=== PATIENT | female | born 1980 | race Caucasian/White ===

== ENCOUNTER 2024-10-14 08:24 | Day surgery (SDC) | payer OTHER ==
[2024-10-13 10:26] VITALS: BMI 23.0
[2024-10-14] MEDS ORDERED: Bupivacaine PF 0.5% 30 ML VIAL ONE (09:01)
[2024-10-14] MEDS ORDERED: CEFAZOLIN 2 GM VIAL ONE (09:01)
[2024-10-14] MEDS ORDERED: Dexamethasone 4 mg/ml Vial ONE (10:16)
[2024-10-14] MEDS ORDERED: Lidocaine 2% PF 5 ML VIAL ONE (10:16)
[2024-10-14] MEDS ORDERED: Ondansetron PF 4 MG/2 ML Vial ONE (10:16)
[2024-10-14] MEDS ORDERED: fentaNYL 50 mcg/mL 1 mL Vial ONE (10:17)
[2024-10-14] MEDS ORDERED: PROPOFOL 20 ML ONE ×2 (10:17→10:21)
[2024-10-14] MEDS ORDERED: Midazolam HCl 2 mg/2 ml Vial ONE (10:17)
[2024-10-14] MEDS ORDERED: Promethazine HCl 25 MG/ML VIAL IM PRN (13:15)
[2024-10-14] MEDS ORDERED: Ondansetron PF 4 MG/2 ML Vial IVP PRN (13:15)
[2024-10-14] MEDS ORDERED: Ropivacaine 0.2% 550 ML 550 ML NERVE BLCK SCH (13:15)
[2024-10-14] MEDS ORDERED: Zolpidem Tartrate 5 MG TAB PO PRN (13:15)
[2024-10-14] MEDS ORDERED: HYDROcodone/Acetaminophen 5/325 mg Tablet ONE (13:39)
== END 2024-10-14 14:00 | disposition home or self-care (01) ==
LOC: CSHSDC 08:24
PROVIDERS: ATTEND Podiatrist Foot & Ankle Surgery
PROC: 0QSN04Z Reposition Right Metatarsal with Internal Fixation Device, Open Approach (ICD-10-PCS; principal; 2024-10-14)
DX: M20.11 Hallux valgus (acquired), right foot (principal); Z88.8 Allergy status to other drugs, medicaments and biological substances; Z79.899 Other long term (current) drug therapy
CPT/HCPCS: A4306; C1713; C1769; C1776; J0665; J1100; J2250; J2405; J2704; J2795; J3010